=== PATIENT | female | born 1955 | race Caucasian/White ===

== ENCOUNTER 2019-03-06 14:41 | Emergency (ER) | payer MEDICARE, OTHER ==
[2019-03-06 14:55] VITALS: BP 131/71
--- NOTE | 2019-03-06 15:24 | ED Physician Documentation ---
PD HPI ANIMAL BITE - Stated complaint Stated Complaint: CAT BITE/SWELLING - Chief complaint Chief Complaint: Heent - History obtained from History obtained from: Patient - History of Present Illness Location of injury(ies): RUE (forearm) Details of the event: Cat, Wild animal (one she is trying to make friendly by feeding it and getting closer to it. It has been around her house for awhile.), Well appearing Timing - onset: Yesterday Timing - duration: Days (1) Timing - details: Gradual onset Worsened by: Moving Associated symptoms: Swelling, Discolored (red starting today). No: Weakness, Numbness Contributing factors: No: Immunocompromised Similar symptoms before: Has not had sx before Recently seen: Not recently seen Review of Systems Constitutional: denies: Fever, Chills, Myalgias Neurologic: denies: Focal weakness, Numbness PD PAST MEDICAL HISTORY - Past Medical History Cardiovascular: None Respiratory: None Endocrine/Autoimmune: None - Present Medications Home Medications: Ambulatory Orders Medication Instructions Recorded Confirmed Amox/Clav 875/125 [Augmentin] 1 each PO Q12H 03/07/19 03/07/19 - Allergies Allergies/Adverse Reactions: Allergies Allergy/AdvReac Type Severity Reaction Status Date / Time aspirin Allergy Nausea Verified 03/07/19 09:31 ibuprofen Allergy Nausea Verified 03/07/19 09:31 PD ED PE NORMAL - Vitals Vital signs reviewed: Yes - General General: Alert and oriented X 3, No acute distress, Well developed/nourished - Derm Derm: Normal color, Warm and dry - Extremities Extremities: Other (right dorsal thenar area and distal wrist with bite luis, redness and some swelling. Not tender in forearm. no pain with ROM of the thumb nor index finger. ) Results - Vitals Vitals: Oxygen O2 Source Room air PD MEDICAL DECISION MAKING - ED course Complexity details: considered differential (no tenosynovitic symptoms), d/w patient Departure - Departure Disposition: 01 Home, Self Care Clinical Impression: Cat bite of right forearm Qualifiers: Encounter type: initial encounter Qualified Code(s): S51.851A - Open bite of right forearm, initial encounter Bite wound of right hand with infection Qualifiers: Encounter type: initial encounter Qualified Code(s): S61.451A - Open bite of right hand, initial encounter Condition: Stable Record reviewed to determine appropriate education?: Yes Instructions: ED Bite Cat Comments: Warm moist towels to the area periodically. Use Tylenol or ibuprofen if needed for pain. Local John wrap can be used for swelling. Augmentin antibiotic twice daily for a week. Recheck if not improving over the next couple of days and return sooner if worsening in particular with significant pain on thumb or finger motion, fever, general symptoms such as nausea or aches, or other concern. Discharge Date/Time: 03/06/19 16:12
[2019-03-06] MEDS ORDERED: AMOX/CLAV 875 MG/125 MG TABLET PO STA (15:46)
== END 2019-03-06 16:12 | disposition home or self-care (01) ==
LOC: ED 14:41
DX: S51.851A Open bite of right forearm, initial encounter (principal); S61.451A Open bite of right hand, initial encounter; L08.9 Local infection of the skin and subcutaneous tissue, unspecified; W55.01XA Bitten by cat, initial encounter
CPT/HCPCS: 99283; A9270

== ENCOUNTER 2019-03-07 09:19 | Emergency (ER) | payer MEDICARE, OTHER ==
[2019-03-07] MEDS ORDERED: LIDOCAINE 1% 2 ML VIAL MC ONE (09:36)
[2019-03-07] MEDS ORDERED: cefTRIAXone 1 GM VIAL IM STA (09:36)
--- NOTE | 2019-03-07 09:38 | ED Physician Documentation ---
History of Present Illness - Stated complaint Stated Complaint: CHECK UP CAT BITE - Chief complaint Chief Complaint: General - History obtained from History obtained from: Patient - History of Present Illness Timing: How many days ago (a few days ago) Pain level max: 3 Pain level now: 3 Improved by: Nothing Worsened by: Palpation - Additonal information Additional information: 63-year-old female presents to the emergency department after sustaining a cat bite from a barn cat. Was started on Augmentin yesterday, noticed increased redness and swelling today. No fevers. Tetanus is up-to-date. She is right- handed. No swelling of the hand. Review of Systems Constitutional: denies: Fever, Chills GI: denies: Vomiting PD PAST MEDICAL HISTORY - Past Medical History Past Medical History: No - Past Surgical History Past Surgical History: No - Present Medications Home Medications: Ambulatory Orders Medication Instructions Recorded Confirmed Amox/Clav 875/125 [Augmentin] 1 each PO Q12H #14 tablet 03/06/19 - Allergies Allergies/Adverse Reactions: Allergies Allergy/AdvReac Type Severity Reaction Status Date / Time aspirin Allergy Nausea Verified 03/07/19 09:31 ibuprofen Allergy Nausea Verified 03/07/19 09:31 - Living Situation Living Arrangement: reports: At home - Social History Does the pt smoke?: No Smoking Status: Never smoker Does the pt have substance abuse?: No - Immunizations Immunizations are current?: Yes Immunizations: TDAP current <10years PD ED PE NORMAL - Vitals Vital signs reviewed: Yes - General General: Alert and oriented X 3, No acute distress - HEENT HEENT: Moist mucous membranes - Neck Neck: Supple, no meningeal sign - Derm Derm: Warm and dry - Extremities Extremities: Other (Right forearm - 5 x 7 area of cellulitis. No abscess. No lymphangitic spread. No swelling of the hand over the dorsum or palmar aspect.) - Neuro Neuro: Alert and oriented X 3 Results - Vitals Vitals: Vital Signs - 24 hr 03/07/19 09:27 Temperature 36.4 C L Heart Rate 74 Respiratory 18 Rate Blood Pressure 145/62 H O2 Saturation 95 Oxygen O2 Source Room air PD MEDICAL DECISION MAKING - ED course Complexity details: reviewed old records, considered differential, d/w patient ED course: Patient with a slight increase in the erythema from yesterday. It has spread mildly outside the lines but there is no streaking. Will give intramuscular Rocephin and see how she progresses over today and tomorrow We will continue the Augmentin as previously prescribed. At this point I do not think this is an antibiotic failure. If she continues to progress, we will consider placing in the hospital for IV antibiotics. Patient counseled regarding signs and symptoms for which I believe and urgent re-evaluation would be necessary. Patient with good understanding of and agreement to plan and is comfortable going home at this time This document was made in part using voice recognition software. While efforts are made to proofread this document, sound alike and grammatical errors may occur. Departure - Departure Disposition: 01 Home, Self Care Clinical Impression: Cat bite of right forearm Qualifiers: Encounter type: initial encounter Qualified Code(s): S51.851A - Open bite of right forearm, initial encounter; W55.01XA - Bitten by cat, initial encounter Cellulitis Qualifiers: Site of cellulitis: extremity Site of cellulitis of extremity: upper extremity Laterality: right Qualified Code(s): L03.113 - Cellulitis of right upper limb Condition: Good Instructions: ED Infec Skin Cellulitis, ED Bite Cat Follow-Up: your,doctor in 2 days for wound check [Other] Comments: Continue the antibiotics as previously prescribed. This should improve over the next 24 hours. Return if you worsen.
[2019-03-07 10:04] VITALS: BP 132/70
== END 2019-03-07 10:05 | disposition home or self-care (01) ==
LOC: ED 09:19
DX: S51.851A Open bite of right forearm, initial encounter (principal); L03.113 Cellulitis of right upper limb; W55.01XA Bitten by cat, initial encounter
CPT/HCPCS: 99283